=== PATIENT | male | born 2000 | race Caucasian/White ===

== ENCOUNTER 2020-07-11 10:58 | Outpatient (CLI) | payer OTHER ==
[2020-07-12 15:23] LABS: SARS-CoV-2 MS2 Positive; SARS-CoV-2 N Gene Negative; SARS-CoV-2 S Gene Negative; SARS-CoV-2 by NAA Not Detected (NotDetected); SARS-CoV-2 orf1ab Negative
== END 2020-07-11 10:59 | disposition home or self-care (01) ==
LOC: LABBT 10:58
PROVIDERS: ATTEND Orthopaedic Surgery
DX: S52.301A Unspecified fracture of shaft of right radius, initial encounter for closed fracture (principal); Z20.828 Contact with and (suspected) exposure to other viral communicable diseases
CPT/HCPCS: 87635; U0003

== ENCOUNTER 2020-07-14 12:13 | Day surgery (SDC) | payer OTHER ==
[2020-07-11 13:49] VITALS: BMI 35.5
[2020-07-14] MEDS ORDERED: diphenhydrAMINE 50 MG/ML VIAL ONE (12:42)
[2020-07-14] MEDS ORDERED: Rocuronium Bromide 10 MG/ML (10ML VIAL) ONE (12:42)
[2020-07-14] MEDS ORDERED: PROPOFOL 200 MG/20 ML VIAL ONE (12:42)
[2020-07-14] MEDS ORDERED: Ondansetron PF 4 MG/2 ML Vial ONE (12:42)
[2020-07-14] MEDS ORDERED: Ketorolac Tromethamine 30 MG/ML VIAL ONE (12:42)
[2020-07-14] MEDS ORDERED: Dexamethasone 20 MG/5 ML VIAL ONE (12:42)
[2020-07-14] MEDS ORDERED: Glycopyrrolate 0.2 MG/ML 5 ML SYRINGE ONE (12:42)
[2020-07-14] MEDS ORDERED: Fentanyl 100 MCG/2 ML VIAL ONE ×5 (15:43→18:22)
[2020-07-14] MEDS ORDERED: Midazolam HCl 2 mg/2 ml Vial ONE (15:43)
[2020-07-14] MEDS ORDERED: Bupivacaine HCl 0.5%/Epinephrine 1:200,000/PF 30 ml Vial ONE (17:09)
[2020-07-14] MEDS ORDERED: Promethazine HCl 25 MG/ML VIAL ONE (17:49)
[2020-07-14] MEDS ORDERED: Meperidine HCl/PF 25 MG/ML VIAL ONE (18:00)
[2020-07-14] MEDS ORDERED: HYDROcodone/Acetaminophen 5/325 mg Tablet ONE (19:13)
--- NOTE | 2020-07-14 20:09 | RAD ---
RIGHT FOREARM TWO VIEWS: History: Open reduction right forearm fracture FINDINGS: There is a proximal radial fracture which has been fixed with plate and screws. Bony alignment appear s satisfactory. IMPRESSION: Open reduction internal fixation of a proximal radial fracture. POS: OFF
--- NOTE | 2020-07-14 21:04 | OP ---
DATE OF PROCEDURE: 07/14/2020 PROCEDURE PERFORMED: Open reduction and internal fixation of right radial shaft fracture, proximal. PREOPERATIVE DIAGNOSIS: Right proximal radial shaft fracture. POSTOPERATIVE DIAGNOSIS: Right proximal radial shaft fracture. COMPLICATIONS: None. ESTIMATED BLOOD LOSS: Minimal. PHYSICAL DIRECTOR: Koby Boateng PA-C IMPLANTS: Synthes 6-hole 3.5 mm plate with multiple nonlocking screws. INDICATIONS FOR PROCEDURE: Mr. Esteves is a 20-year-old male who has fractured his right radius. He has been indicated for open reduction and internal fixation to restore anatomic alignment and promote healing. Risks have been reviewed in detail. He has elected to proceed with the operation. Primary risks include nerve or vascular injury, nonunion, malunion, hardware related pain, and others. DESCRIPTION OF PROCEDURE: Mr. Esteves was identified in the preoperative holding area. His correct extremity was marked. He was carried to the operating room. He was positioned supine. General anesthesia was induced. A multidisciplinary time-out was performed. The right upper extremity was prepped and draped in a sterile fashion. We began the procedure with a dorsal approach to the proximal radius. We dissected down through the subcutaneous tissues to the fascia, which was opened. We then identified the interval between the ECRB and the EDC tendons. This was developed, we worked deeply down to the bony level. We protected the PIN nerve. At this point, the arm was supinated and we elevated the supinator from its insertion on the radius. At this point, we encountered the radial fracture. We worked distally and proximally. We dissected enough to allow plate placement on the dorsal aspect of the radius. At this point, we applied our dorsal radial plate. We placed three screws proximally and three screws distally, locking the plate to the bone and holding our reduction. We had mosque of the radial bow. At this point, we took final x-ray images. We then thoroughly irrigated and closed the deep tissue, followed by superficial closure. A sterile dressing and a splint were placed. The library serials assistant surgeon was responsible for positioning the patient, preparing the injured extremity, applying the tourniquet, and assisting in preparation for surgery. The library serials assistant was instrumental in reducing the injured limb by applying traction and reduction maneuvers as well as holding retractors and reduction tools. The library serials assistant also was instrumental in assisting in exposure throughout the operation using appropriate retractors. The library serials assistant participated in closure of the operative site as well as dressing application and splint application. Job ID: [id number]
== END 2020-07-14 20:00 | disposition critical access hospital (66) ==
LOC: SDC 12:13
PROVIDERS: ATTEND Orthopaedic Surgery
PROC: 0PSH04Z Reposition Right Radius with Internal Fixation Device, Open Approach (ICD-10-PCS; principal; 2020-07-14)
DX: S52.321A Displaced transverse fracture of shaft of right radius, initial encounter for closed fracture (principal); F43.10 Post-traumatic stress disorder, unspecified; F41.9 Anxiety disorder, unspecified; E66.9 Obesity, unspecified; Z68.35 Body mass index [BMI] 35.0-35.9, adult; Y93.72 Activity, wrestling; Y92.149 Unspecified place in prison as the place of occurrence of the external cause
CPT/HCPCS: 76000; C1713; J0690; J1100; J1200; J1885; J2175; J2250; J2405; J2550; J2704; J3010

== ENCOUNTER 2025-08-16 08:25 | Emergency (ER) | payer OTHER ==
[2025-08-16] MEDS ORDERED: Acetaminophen 500 MG TAB ONE (08:44)
== END 2025-08-16 10:08 | disposition home or self-care (01) ==
LOC: ERS 08:25
DX: S62.336A Displaced fracture of neck of fifth metacarpal bone, right hand, initial encounter for closed fracture (principal); Y04.0XXA Assault by unarmed brawl or fight, initial encounter
CPT/HCPCS: 29125; 96372; 99284

== ENCOUNTER 2025-09-30 09:27 | Outpatient (CLI) | payer OTHER | END 2025-09-30 09:28 | disposition home or self-care (01) | LOC: BICRAD 09:27 | PROVIDERS: ATTEND Family Medicine | DX: S62.306D Unspecified fracture of fifth metacarpal bone, right hand, subsequent encounter for fracture with routine healing (principal) ==